=== PATIENT | male | born 1945 | race Caucasian/White ===

== ENCOUNTER 2020-03-16 08:53 | Outpatient (CLI) | payer MEDICARE, SELFPAY ==
--- NOTE | 2020-03-16 10:00 | ECG_ITS ---
Measurements Intervals [place] Rate: 66 P: 51 IA: 225 QRS: 31 QRSD: 102 T: 42 QT: 424 QTc: 446 Interpretive Statements SINUS RHYTHM WITH FIRST DEGREE AV BLOCK DELAYED PRECORDIAL R/S TRANSITION NONSPECIFIC T-WAVE ABNORMALITY- ANTEROLAT/INF LEADS BASELINE ARTIFACT- I, II, III, AVR, AVL,A VF, V1-V6 ABNORMAL ECG Electronically Signed On 03-16-2020 10:28:01 TRANSITION ADVISOR by Niraj Corey D.O.
[2020-03-16 10:32] LABS: Basophils Absolute Auto 0.1 K/mm3 (0.0-0.1); Basophils Percent Auto 0.7 % (0.2-1.2); Eosinophils Absolute Auto 0.2 K/mm3 (0-0.3); Eosinophils Percent Auto 2.7 % (0-4.4); Hematocrit 43.1 % (42.0-52.0); Hemoglobin 14.6 g/dL (14.0-18.0); Immature Granulocyte Absolute 0.02 K/mm3 (0.00-0.031); Immature Granulocyte Percent A 0.3 % (0-0.5); Lymphocytes Absolute Auto 1.72 K/mm3 (0.9-3.2); Lymphocytes Percent Auto 25.7 % (18.3-44.2); Mean Corpuscular HGB Conc 33.9 g/dl (32-36); Mean Corpuscular Hemoglobin 30.2 pg (26-34); Mean Platelet Volume 9.7 fl (7.4-10.4); Monocytes Absolute Auto 0.3 K/mm3 (0.1-0.6); Monocytes Percent Auto 4.9 % (2.6-8.5); Neutrophils Absolute Auto 4.4 K/mm3 (1.3-6.7); Neutrophils Percent Auto 65.7 % (45.5-73.1); Platelet Count Result 252 k/mm3 (150-375); Red Blood Count 4.84 M/mm3 (4.6-6.20); Red Cell Distribution Width 12.7 % (11.5-14.5); White Blood Count 6.7 K/mm3 (4.5-10.0)
[2020-03-16 10:47] LABS: Albumin Level 4.5 g/dL (3.5-5.1); Estimated Glomerular Filt Rate > 60; Glucose 111 mg/dL (75-110)
[2020-03-16 12:14] LABS: Hemoglobin A1C 5.5 % (<5.7)
[2020-03-16 13:48] LABS: Urine Cotinine NEGATIVE
== END 2020-03-16 08:54 | disposition home or self-care (01) ==
LOC: ANHSURGERY 08:58
PROVIDERS: Visit Provider Orthopaedic Surgery
DX: Z01.818 Encounter for other preprocedural examination (principal); M16.11 Unilateral primary osteoarthritis, right hip; I44.0 Atrioventricular block, first degree; Z51.81 Encounter for therapeutic drug level monitoring; Z79.899 Other long term (current) drug therapy
CPT/HCPCS: 80307; 82040; 82565; 82947; 83036; 85025; 87081; 93005

== ENCOUNTER → 2020-03-27 02:36 | Outpatient (CLI) | payer MEDICARE, SELFPAY ==
[2020-03-27 21:58] LABS: SARS-CoV-2 RNA PCR Negative
== END ==
PROVIDERS: Visit Provider Orthopaedic Surgery
DX: Z01.812 Encounter for preprocedural laboratory examination (principal); Z20.822 Contact with and (suspected) exposure to COVID-19
CPT/HCPCS: C9803; U0003; U0005

== ENCOUNTER 2020-03-30 00:34 | Day surgery (SDC) | payer MEDICARE, SELFPAY ==
[2020-03-16 09:20] VITALS: BP 120/79; PULSE 73; RESP 16; TEMP 36.9; O2SAT 96; BMI 35.6
[2020-03-30] VITALS (17 sets, daily range): BP systolic 110–145; BP diastolic 65–92; PULSE 64–89; RESP 12–20; TEMP 36.1–37; O2SAT 94–100; BMI 35.3
--- NOTE | ~2020-03-30 | XR_ITS ---
EXAMINATION: XR surgery orthopedic EXAM DATE: 03/30/2020 10:15 INDICATION: Right hip replacement. TECHNIQUE: Fluoroscopy used during XR surgery orthopedic performed by Dr. Jaspal Tinsley MD. The DAP for this procedure was 0.21 mGym2. FINDINGS: Frontal image demonstrates right hip arthroplasty hardware in expected position. Correlat e with procedure note. IMPRESSION: Fluoroscopy used during right hip replacement. Reviewed, dictated and finalized at location B. CTOR OF ATHLETICS
--- NOTE | ~2020-03-30 | XR_ITS ---
EXAMINATION: XR hip RT min 2V DATE: 03/30/2020 10:59 INDICATION: Postoperative evaluation following right total hip arthroplasty TECHNIQUE: Anteroposterior and lateral views of the right hip were obtained. COMPARISON: 03/24/2020 FINDINGS: Interval placement of a noncemented right total hip arthroplasty which appears well seated in near an atomic alignment.The acetabular component is affixed with a single screw. Suspected subcutaneous gas in the postoperative bed. No fractures identified. At least moderate lower lumbar spondylosis. IMPRESSION: 1. Noncemented right total hip arthroplasty, negative for postoperative purposes. Reviewed, dictated and finalized at location A. GER PULMONARY IMPRESSION: 1. Noncemented right total hip arthroplasty, negative for postoperative purpose s.
[2020-03-30] MEDS: ACETAMINOPHEN 500 MG TABLET 1000 MG PO (06:28)
[2020-03-30] MEDS: LACTATED RINGERS 1,000 ML 30 ML IV CONT ×2 (06:35→10:40)
[2020-03-30] MEDS: TRANEXAMIC ACID 1,000MG/ISO100 1,000 MG/100 ML BAG 200 MG IVPB (06:38)
[2020-03-30] MEDS: METOPROLOL TARTRATE INJ 5 MG/5 ML VIAL IV PUSH (07:12)
--- NOTE | 2020-03-30 07:13 | WPDHPUPDATE1 ---
History and Physical Update Update Date/Time: 03/30/20 07:13 History and Physical has been reviewed, including an updated exam of the patient. There are NO changes in the patient's condition. Risks, benefits, and alternatives have been discussed and questions answered. Patient agrees to proceed with procedure.
--- NOTE | 2020-03-30 07:14 | WPDANESEPPF ---
Anes - Initial Pre Proc Eval Procedure: Operation Date: 03/30/20 07:30 Proposed Procedures p Right Total Hip Arthroplasty Anterior Approach - Jaspal Tinsley MD Date/Time: 03/30/20 07:14 Surgeon: Jaspal Tinsley MD Pre Op Diagnosis: Right Hip OA Patient Data Age: 74 Gender: M Height: 6 ft 1 in Weight: 121.5 kg Last Vital Signs Temp 36.2 C L 03/30/20 06:13 Pulse 81 03/30/20 07:12 Resp 18 03/30/20 06:13 BP 145/84 H 03/30/20 06:13 Pulse Ox 99 03/30/20 06:13 Allergies Allergy/AdvReac Type Severity Reaction Status Date / Time No Known Allergies Allergy Verified 03/30/20 06:15 Home Medications Medication Instructions Recorded Confirmed Type aspirin 325 mg tablet 325 mg PO DAILY 02/07/19 03/30/20 History metoprolol tartrate 50 mg tablet 50 mg PO QACDINNER tablet 02/07/19 03/30/20 History omega-3 acid ethyl esters 1 gram 1 g PO BID 02/07/19 03/30/20 History capsule rosuvastatin 20 mg sprinkle capsule 20 mg PO QACDINNER cap 02/07/19 03/30/20 History coenzyme Q10 [CoQ-10] 100 mg PO DAILY 03/16/20 03/30/20 History esomeprazole magnesium [Nexium] 20 mg PO DAILY PRN 03/16/20 03/30/20 History famotidine-Ca carb-mag hydrox 1 tablet PO BID PRN 03/16/20 03/30/20 History [Pepcid Complete] rivaroxaban 10 mg tablet 10 mg PO DAILY #14 tablet 03/24/20 03/24/20 Rx Patient hx anesthesia problems: none Family hx anesthesia problems: none PMFSH Past Medical History Medical History GERD (gastroesophageal reflux disease) Hyperlipidemia Hypertension Tachycardia Surgical History Surgical History History of shoulder surgery Right rotator cuff repair Social History Social History Smoking status: Never smoker Tobacco type: smokeless tobacco Additional smoking assessment comments: QUIT 2004 CHEWING TOBACCO Alcohol intake: current Drinks per week: 6 Alcohol use details: 6 BEERS/WEEK Living arrangements: with family Additional living arrangements comments: Additional occupation/education comments: [employer] Gender identity (if verbalized by the patient): Male Spiritual care concerns: No Anes - Eval Final PreProcedure Day of Procedure 03/30/20 07:14 Patient weight: obese Heart: regular rate and rhythm Lungs: clear to auscultation Airway: Mallampati scale class II Neurological: alert and oriented Last oral intake: >/= 8 hours ASA classification: III Emergent: no Anesthetic plan: proceed Anesthesia type and monitoring: general ETT and standard monitoring Informed Consent: The patient's anesthetic plan and its attendant risks and benefits were discussed with the patient/family/POA. Questions were solicited and answers provided to the satisfaction of the patient/family/POA.
[2020-03-30] MEDS: ceFAZolin 3 GM/D5W 100 ML 100 ML IVPB (07:28)
[2020-03-30] MEDS: BUPIVACAINE/EPINEPHRINE 0.25% 50 ML VIAL 40 ML INFILTRATE (08:05)
[2020-03-30] MEDS: TRANEXAMIC ACID 1,000 MG/10 ML AMPUL 1000 MG TOPICAL (08:07)
[2020-03-30] MEDS: ceFAZolin SODIUM 1 GM VIAL IV PUSH (10:06)
--- NOTE | 2020-03-30 10:13 | SUR.OPER ---
RTHA WITH DR PEOPLES EBL: 250ML CELL SAVER: 100ML GIVEN BACK. SEE ANESTHESIA RECORD FOR ADMINISTRATION
--- NOTE | 2020-03-30 10:44 | PM.PROC ---
Procedure Note - Detailed Date of procedure: 03/30/20 Pre-op diagnosis: Right Hip OA Post-op diagnosis: same Procedure performed: right total hip replacement through an anterior approach Description of procedure: The patient was identified and proper site identified. He was taken back to the operating room and after general anesthetic induction and intubation, he was transferred over to the [place] table position in the usual manner for right hip procedure taking care to properly pad position his torso and extremities. The right hip and thigh was prepped and draped in the usual sterile fashion. 10 cc of 0.25% Marcaine and epinephrine solution was injected into the subcutaneous tissue in the area of the incision. An incision was made over the TFL muscle belly. Subcutaneous tissue was sharply dissected down to the TFL fascia which was divided in line with incision the TFL was retracted laterally and the deeper layers of the TFL fascia were opened up exposing the fascia of the vastus lateralis. This was divided and the circumflex vessels were identified then coagulated with the Aqua Mantis. The retractors were placed around the femoral neck allowing for exposure the capsule which was cleared of the pre capsular fat. Anterior capsulectomy was performed. The neck cut was made a fingerbreadth above the level lesser trochanter and the head removed. The acetabulum was cleared of debris and then sequentially reamed up to 57 mm. A 58 G7 cup was impacted into position at about 15? of anteversion and 40? of abduction. This was done with fluoroscopic control/visualization. A single screw was placed superiorly and then after the wound was irrigated the liner for the 36 head was placed. Attention was turned to the femur. Appropriate releases were done to allow for access to the proximal femur for broaching. It was sequentially broached up to a size 18 in the trial reduction was undertaken. There was good fit and fill of the femoral component. After lavage of the wound the real size 18 high offset micro plasty echo stem was fully seated. This construct with a combination of a a size 36- three head gave not only excellent stability with good sabianism of leg lengths so the real 36 ceramic head with a minus three sleeve was impacted onto the cleaned neck of the femoral component. The hip was again reduced and stability assessed. It was also visualized fluoroscopically in the AP and lateral views. The wound was irrigated with copious amount of sterile saline. Amie articular tissues were injected with an additional 40 mL of the Marcaine and epinephrine solution. 1 g tranexamic acid was left deep in the wound. The TFL fascia was reapproximated with 0 looped PDS suture as was the deeper layers of the subcu. Skin was reapproximated with two 0 strata fix and tissue adhesive. Sterile dressing was applied. He tolerated the procedure well. Was awakened, extubated taken recovery in stable condition. There were no known intraoperative complications. Estimated blood loss was 250 mL. He received 100 mL back via Cell Saver. He received perioperative antibiotics. Anesthesia: GETA Surgeon: Jaspal Tinsley MD Marine Water Tender: Harish Velazquez Estimated blood loss (mL): 250 ( 100 mL returned by Cell Saver) Drains: No Pathology: none sent Complications: No immediate complications Condition: stable Disposition: PACU
[2020-03-30] MEDS: fentaNYL CITRATE INJ (*CRX) 100 MCG/2 ML VIAL 25 MCG IV PUSH ×3 (11:27→11:35)
--- NOTE | 2020-03-30 12:20 | ADMGEN ---
This patient, Chino Jimenez, was admitted to 2 Medical Room 259-01. Patient/family oriented to hospital policies and general routines including ID bracelet, bed and alarms, visiting hours, pain management, procedures, bathroom and other care routines, personal items, smoking policy, room service/diet, and visiting hours. Information on how to activate the Rapid Response Team has been discussed. Patient/Family are encouraged to report perceived risks to care and to ask questions if they do not understand what they are told or what they should do.
[2020-03-30] MEDS: ACETAMINOPHEN 325 MG TABLET 650 MG PO ×3 (12:36→23:35)
[2020-03-30] MEDS: oxyCODONE HCL (*CRX) 5 MG TAB IR PO (12:36)
[2020-03-30] MEDS: KETOROLAC 15 MG/ML VIAL (*BKC) IV PUSH ×3 (12:37→23:31)
[2020-03-30] MEDS: ceFAZolin 2 GM/D5W 50 ML 2 GM/50 ML BAG IVPB ×2 (16:16→23:30)
[2020-03-30] MEDS: DOCUSATE SODIUM 100 MG CAPSULE PO (16:22)
[2020-03-30] MEDS: ROSUVASTATIN 10 MG TABLET 20 MG PO (16:22)
[2020-03-30] MEDS: METOPROLOL TARTRATE 50 MG TAB PO (16:23)
[2020-03-30] MEDS: TAPENTADOL HCL (*CRX) 50 MG TABLET PO ×2 (18:17→23:31)
[2020-03-31 01:47] VITALS: BP 105/60; PULSE 72; RESP 18; TEMP 36.8; O2SAT 95
[2020-03-31 05:49] VITALS: BP 105/61; PULSE 80; RESP 16; TEMP 37.2; O2SAT 97
[2020-03-31] MEDS: KETOROLAC 15 MG/ML VIAL (*BKC) IV PUSH (06:12)
[2020-03-31] MEDS: ACETAMINOPHEN 325 MG TABLET 650 MG PO (06:13)
[2020-03-31] MEDS: TAPENTADOL HCL (*CRX) 50 MG TABLET PO (06:14)
[2020-03-31] MEDS: ceFAZolin 2 GM/D5W 50 ML 2 GM/50 ML BAG IVPB (06:39)
--- NOTE | 2020-03-31 07:17 | PM.DS ---
DS: Admitting Diagnosis Admitting Diagnosis Admitting Diagnosis: Osteoarthritis right hip DS: Discharge Diagnosis Discharge Diagnosis (1) Osteoarthritis of right hip: Qualifiers: Osteoarthritis type: primary Qualified Code(s): M16.11 - Unilateral primary osteoarthritis, right hip Code(s): M16.11 - Unilateral primary osteoarthritis, right hip Status: Chronic Assessment and Plan: Discharge home today. Has follow-up with me in approximately two weeks. Will be on Xarelto for two weeks followed by his daily aspirin again. He has exercises that he will do on his own. He is to use a walker at least until he returns to see me. He is to call with any questions prior to follow-up. DS: Summary Hospital Course Reason for hospitalization: Observation following outpatient procedure Hospital Course: After the patient's surgery, he was admitted to the floor to begin his outpatient therapy. He made excellent progress and is discharged home on postop day one. He did have one episode of urinary retention however he has been able to void on his own through the night and this morning. Status at Discharge Functional status at discharge: uses cane/walker Overall status at discharge: patient is not back to baseline Time Spent with Patient Time attestation: Total time spent providing and/or coordinating discharge services: Time spent: Less than 30 minutes Exam Const: General: cooperative, no acute distress and alert Nutritional Appearance: other Orientation/consciousness: patient oriented x3 HENMT: Head: normal to inspection Ears: hearing grossly normal bilaterally Face and sinus: face symmetric Mouth: Yes moist mucous membranes Teeth and gingiva: fair dentition Eyes: Alignment and Position: alignment normal and position normal Sclera: sclerae normal Neck: Neck: normal visual inspection and nontender Chest: Chest palpation & inspection: normal inspection of the chest Resp: Effort & Inspection: normal respiratory effort and able to speak in complete sentences GI: Inspection: other (Nondistended) Skin: General skin exam: normal color Rashes: no rashes Neuro: General: patient oriented x3 Cognition (Neuro): normal cognition Speech: normal speech Gait exam (Neuro): Other gait observations present Extrem: General: normal to inspection and other Other: Exam of the right hip wound shows that is well approximated with no drainage. No significant bruising noted and minimal swelling at this point. Motor and sensory function grossly intact to the right lower extremity. Calves negative. Psych: Appearance: grossly normal Mental Status: mental status grossly normal DS: Data Data Completed and Pending Labs on day of discharge: Labs from last 24 hours 03/30/20 06:27 Blood Type O Negative Antibody Screen Negative Discharge Plan Discharge Patient Disposition: Home, Self-Care Discharge Instructions: 3 times daily for 20 minutes each time, reclining in bed with ice packs over the incision and a pillow underneath the calf of the affected leg, not under the knee. Your wound is glued so it is okay to get into the shower and get the wound wet in two days. Be sure to read through all the information that came from a my office and the hospital. Most of the answers you will need can be found that material. Call the office with any questions that you cannot find answers to, or concerns you may have. After the Xarelto is completed, start taking one coated 325 mg aspirin daily. Please call [facility] at as soon as possible to verify follow-up appointment to be seen in 2 weeks. Also, call the office with any orthopedic/surgical related questions prior to follow-up. Be sure to get up and move around several times daily but do not overdo it. Take the arthritis formula Tylenol 650 mg tablet on an 8 hour schedule. A good 8 hour schedule is: 6:00 a.m., 2:00 p.m., 10:00 p.m. you may t
[2020-03-31] MEDS: RIVAROXABAN 10 MG TABLET PO (08:02)
[2020-03-31] MEDS: DOCUSATE SODIUM 100 MG CAPSULE PO (08:02)
--- NOTE | 2020-03-31 09:32 | WPDANESPN ---
Anes - Prog Note Post-Op Date/Time: 03/31/20 09:32 Cardiovascular status: normal Respiratory status: normal Airway patency: baseline Mental status: baseline Post-Op hydration status: normal Vital Signs: Last Vital Signs Temp 37.2 C 03/31/20 05:49 Pulse 80 03/31/20 05:49 Resp 16 03/31/20 05:49 BP 105/61 03/31/20 05:49 Pulse Ox 97 03/31/20 05:49 Pain Score (VAS): 3 I/O: Intake & Output 03/30/20 03/31/20 03/31/20 23:59 07:59 15:59 Intake Total 2290 100 240 Output Total 700 Balance 1590 100 240 Post-procedural complaints: none Patient Feedback: Patient satisfied with anesthetic care.
--- NOTE | 2020-03-31 10:40 | PC.NURSE ---
Spoke with [facility] pharmacy in [place] to verify that they had Nucynta in stock. They stated they do but it is not covered by the patient's insurance. Cost to patient will be $367. Talked with patient and his spouse. They would like to obtain the medication and are willing to pay for it. Notified [facility] of same. Called Dr. Tinsley to verify dressing instructions for home. Dressing is to be changed again tomorrow and can be left [employer] FIL[employer] INSPECTOR after that time. Instructed on Coverlet dressing and provided supplies for home. Instructed her on leaving dressing off after tomorrow if incision remains dry. Gel pads also sent home with patient.
--- NOTE | 2020-03-31 16:46 | PCCCNOTE ---
03/31/2020 at [address] Tinsley regarding pt Chino Jimenez s/p CHARLIE yesterday. Dr. Tinsley asked if I could assist pt and family in obtaining hospital bed and bedside commode. I contacted pt and spoke with daughter about equipment needs. They stated that they made contact with [facility] in [facility] to provide needed equipment. It will arrive tomorrow AM. No further action taken. Told family to call if difficulties arise.
== END 2020-03-31 10:45 | disposition home or self-care (01) ==
LOC: ANHSURGERY 10:39 → ANH2MED 12:08
PROVIDERS: Visit Provider Orthopaedic Surgery
PROC: (CPT 27130; principal; 2020-03-30 07:30)
DX: M16.11 Unilateral primary osteoarthritis, right hip (principal); I10 Essential (primary) hypertension; E78.5 Hyperlipidemia, unspecified; K21.9 Gastro-esophageal reflux disease without esophagitis; R00.0 Tachycardia, unspecified; Z79.01 Long term (current) use of anticoagulants; Z79.82 Long term (current) use of aspirin; Z87.891 Personal history of nicotine dependence; E66.9 Obesity, unspecified; Z68.35 Body mass index [BMI] 35.0-35.9, adult
CPT/HCPCS: 27130; 36415; 73502; 86850; 86900; 86901; 97110; 97116; 97161; 97165; 97530; 97535; A9270; C1776; J0690; J1100; J1170; J1885; J2370; J2405; J2704; J2710; J3010; J7040; J7120